=== PATIENT | female | born 1940 | race Caucasian/White ===

== ENCOUNTER 2019-09-22 21:37 | Inpatient (IN) | payer BC, MEDICARE ==
[~2019-09-22] VITALS: Ht 162.6 cm; Wt 120.2 kg
--- NOTE | 2019-09-22 21:45 | NUR ---
PT BIB RA WITH A C/O MORE TIRED THAN USUAL. PT IS AA&O X 2-3. PT KNOWS PERSON, PLACE, AND THE PRESIDENT. PT DOES NOT KNOW THE YEAR. PT WAS 92% ON RA. PT WAS PLACED ON 2L O2 VIA NC. PT IS SATURATING AT 96%. PT'S DAUGHTER IS AT THE BEDSIDE AND IS SPEAKING TO TRIAGE. PT HAS BLE EDEMA WITH LYMPHEDEMA NOTED BILATERALLY. PT IS AFEBRILE.
[2019-09-22 22:39] LABS: BASOPHILS % (AUTO) 0.4 % (0.0-2.0); EOSINOPHILS % (AUTO) 1.5 % (0.0-6.0); HEMATOCRIT 44 % (33-45); HEMOGLOBIN 14.6 g/dL (11.5-14.8); LYMPHOCYTES # (AUTO) 0.6 /CMM (0.8-4.8); LYMPHOCYTES % (AUTO) 5.1 % (20.0-44.0); MEAN CORPUSCULAR HGB CONC 33 g/dl (31.0-36.0); MEAN CORPUSCULAR VOLUME 90 fL (82-100); MONOCYTES # (AUTO) 0.7 /CMM (0.1-1.30); MONOCYTES % (AUTO) 6.2 % (2.0-12.0); NEUTROPHILS # (AUTO) 9.7 /CMM (1.8-8.9); NEUTROPHILS % (AUTO) 86.8 % (43.0-81.0); PLATELET COUNT (AUTO) 216 /CMM (150-450); RED BLOOD CELL COUNT(AUTO) 4.87 MIL/uL (4.0-5.2); WHITE BLOOD COUNT (AUTO) 11.2 K/uL (4.3-11.0)
--- NOTE | 2019-09-22 22:40 | NUR ---
INFLUENZA SWAB DONE. IN AND OUT CATH DONE. APPROX 200 ML CLOUDY, YELLOW URINE OUTPUT NOTED.
--- NOTE | 2019-09-22 22:40 | NUR ---
PT USES A WALKER TO AMBULATE
--- NOTE | 2019-09-22 22:50 | NUR ---
PT LEFT FOR CT VIA RNEY
[2019-09-22 22:53] LABS: CALCIUM, SERUM 9.8 mg/dL (8.5-10.1); CARBON DIOXIDE 32 mmol/L (21-32); CHLORIDE 95 mmol/L (98-107); CREATININE 1.5 mg/dL (0.6-1.3); GLUCOSE 194 mg/dL (74-106); POTASSIUM 3.9 mmol/L (3.5-5.1); SODIUM SERUM 134 mmol/L (136-145); UREA NITROGEN, BLOOD 30 mg/dL (7-18)
[2019-09-22 22:56] LABS: APPEARANCE,URINE Cloudy (CLEAR); BILIRUBIN,URINE Negative (NEGATIVE); BLOOD, URINE Moderate Ery/uL (NEGATIVE); COLOR,URINE Yellow (YELLOW); KETONES,URINE Negative (NEGATIVE); LEUKOCYTE ESTERASE ,URINE Moderate (NEGATIVE); NITRITE, URINE Positive (NEGATIVE); PROTEIN,URINE 30 mg/dl (NEGATIVE); UGLUCOSE Negative (NEGATIVE); UROBILINOGEN,URINE 0.2 EU/dL (0.2)
[2019-09-22 23:10] LABS: BACTERIA,URINE 3+ /HPF (None Seen); RBC,URINE 21-50 /HPF (0-2); SQUAMOUS EPITHELIAL CELL,UR Few /HPF (None Seen); WBC,URINE 81-100 /HPF (0-3)
--- NOTE | 2019-09-22 23:10 | NUR ---
PT RETURNED FROM CT. PT WAS PLACED BACK ON THE MONITOR AND CONTINUOUS PULSE OX.
[2019-09-22 23:21] LABS: ALANINE AMINOTRANSFERASE 20 U/L (12-78); ALBUMIN 3.3 g/dL (3.4-5.0); ALKALINE PHOSPHATASE 70 U/L (46-116); ASPARTATE AMINOTRANSFERASE 21 U/L (15-37); B-TYPE NATRIURETIC PEPTIDE 10914 PG/ML (0-125); BILIRUBIN,DIRECT 0.3 mg/dL (0.0-0.2); TOTAL PROTEIN, SERUM 7.9 g/dL (6.4-8.2)
[2019-09-22] MEDS ORDERED: ASPIRIN 325 MG TABLET PO ONE (23:30)
[2019-09-22] MEDS ORDERED: CEFTRIAXONE 1GM BAG (ER ONLY) 1 GM/50 ML PIGGYBACK IV ONE (23:30)
--- NOTE | 2019-09-22 23:32 | NUR ---
DR EDWARDS IS AT THE BEDSIDE.
[2019-09-22] MEDS ORDERED: CEFTRIAXONE 1GM BAG (ER ONLY) 50 ML IV ONE (23:43)
[2019-09-22] MEDS ORDERED: ASPIRIN 325 MG TABLET ONE (23:44)
--- NOTE | 2019-09-22 23:48 | NUR ---
PER DR EDWARDS, CANCEL ASPIRIN ORDER.
[2019-09-22] MEDS ORDERED: hydrALAZINE HCL IV 20 MG VIAL ONE (23:49)
--- NOTE | 2019-09-22 23:49 | NUR ---
PT'S BLOOD PRESSURE IS STILL ELEVATED 181/117. DR EDWARDS IS AWARE AND NEW ORDERS WERE GIVEN.
--- NOTE | 2019-09-22 23:53 | NUR ---
verbal order from dr. ly; hydralazine 10mg ivp
[2019-09-23] MEDS ORDERED: CEFTRIAXONE 1GM BAG (ER ONLY) 50 ML IV ONE ×2 (00:09→00:21)
[2019-09-23] MEDS ORDERED: ONDANSETRON HCL/PF 4 MG/2 ML VIAL IVP PRN (00:30)
[2019-09-23] MEDS ORDERED: MORPHINE SULFATE INJ 2 MG/ML DISP.SYRIN IV PRN (00:30)
[2019-09-23] MEDS ORDERED: Z GUARD REMEDY 2 OZ OINT TP PRN (00:30)
--- NOTE | 2019-09-23 00:41 | NUR ---
BED ASSIGNMENT 306-1
--- NOTE | 2019-09-23 00:50 | NUR ---
DR. EDWARDS ON THE PHONE WITH DR. ANTONIO FROM [facility]
[2019-09-23] MEDS ORDERED: ENALAPRILAT DIHYD. (2.5MG/ML) 1.25 MG/ML VIAL IV PRN (01:00)
[2019-09-23] MEDS ORDERED: hydrALAZINE HCL IV 20 MG VIAL IV ONE (01:00)
[2019-09-23] MEDS ORDERED: WARF4TAB72 PO (01:17)
[2019-09-23] MEDS ORDERED: SPIR25TA6 PO (01:17)
[2019-09-23] MEDS ORDERED: METO25TA4 PO (01:17)
[2019-09-23] MEDS ORDERED: HYDR25TA4 PO (01:17)
[2019-09-23] MEDS ORDERED: FURO40TA5 PO (01:17)
[2019-09-23] MEDS ORDERED: CAND32TA20 PO (01:17)
--- NOTE | 2019-09-23 01:54 | NUR ---
PT APPEARS TO BE RESTING COMFORTABLY WITH NO S/S OF PAIN OR DISTRESS.
--- NOTE | 2019-09-23 02:15 | NUR ---
HEAT TREATING FURNACE TENDER ADMITTING NOTES PATIENT ARRIVED ON UNIT VIA GURNEY; ACCOMPANIED BY ER STAFF AND DAUGHTER; PATIENT ON 2L NC; BREATHING EVEN; PATIENT HAS SLIGHT SOB; BUT TOLERATING 2L NC WELL; PATIENT IS A/O X2; PATIENT FATIGUED AND UNABLE TO PROVIDE MEDICAL HX D/T CONDITION; DAUGHTER PROVIDED MEDICAL HX; R AC #20 INTACT AND PATENT; NO S/S OF REDNESS OR INFILTRATION; FLUSHING WELL; SKIN ASSESSMENT DONE; LOAN MULTIPLE BRUISES NOTED; R UPPER THIGH RASH NOTED; BILATERAL LOWER LEG EDEMA AND DRY SCALY SKIN NOTED; BILATERAL FEET SCALY AND DRY WELL; GENERALIZED EDEMA NOTED; PICTURES TAKEN AND FILED IN PATIENT BINDER; TELE MONITOR ATTACHED; TELE MONITOR READS AFIB, HR 103; PATIENT HAS HX OF AFIB; DAUGHTER STATED PATIENT HR USUALLY 90S - 104S. WILL CONTINUE TO MONITOR; BED LOCKED IN LOW POSITION; SAFETY PRECAUTIONS IN PLACE; BILATERAL SIDE RAILS X2; CALL LIGHT WITHIN REACH; WILL CONTINUE TO MONITOR;
[2019-09-23 02:30] VITALS: BP 148/94
[2019-09-23 04:00] VITALS: BP 122/67
[2019-09-23 04:03] VITALS: BP 148/94
--- NOTE | 2019-09-23 06:13 | NUR ---
PURCHASER AUTOMOTIVE PARTS NOTES FLIGHT PURSER AT BEDSIDE FOR CXR
--- NOTE | 2019-09-23 06:19 | NUR ---
TELEPHONE ASSEMBLER CLOSING NOTES PATIENT SLEEPING COMFORTABLY IN BED; BREATHING EVEN AND UNLABORED; NO S/S OF ACUTE RESPIRATORY DISTRESS NOTED; PATIENT ON 2L NC, TOLERATING WELL; TELE MONITOR READS AFIB HR 93BPM; R AC #18 SL; INTACT AND PATENT; NO S/S OF REDNESS OR INFILTRATION; SAFETY PRECAUTIONS IN PLACE; BED LOCKED IN LOW POSITION; PATIENT IN HIGH FOWLERS TO ASSIST WITH BREATHING; BILATERAL UPPER SIDE RAILS X2; CALL LIGHT WITHIN REACH; CXR COMPLETED; AWAITING RESULTS; WILL ENDORSE CONTINUITY OF CARE TO ONCOMING NURSE.
[2019-09-23 08:00] VITALS: BP 133/80
--- NOTE | 2019-09-23 08:00 | NUR ---
TRACK REPAIRER NOTES PATIENT IN BED RESTING DAUGHTER AT BEDSIDE. PATIENT ALERT, ORIENTED X3. DENIES ANY PAIN. DAUGHTER AT BEDSIDE. PERIPHERAL IV INTACT PATENT. BED IN LOW LOCKED POSITION. CALL LIGHT WITHIN REACH. WILL CONTINUE TO MONITOR.
[2019-09-23] MEDS: METOPROLOL SUCCINATE 25 MG TAB.SR.24H PO SCH (08:58)
[2019-09-23] MEDS: PANTOPRAZOLE 40 MG TABLET.DR PO SCH (08:58)
[2019-09-23] MEDS: DOCUSATE SODIUM 100 MG CAPSULE PO SCH ×2 (08:58→17:56)
[2019-09-23] MEDS ORDERED: LOSARTAN POTASSIUM 50 MG TABLET PO SCH (09:00)
[2019-09-23] MEDS ORDERED: FUROSEMIDE 20 MG/2 ML VIAL IV SCH (09:00)
[2019-09-23] MEDS ORDERED: CANDESARTAN CILEXETIL 16 MG PO SCH (09:00)
--- NOTE | 2019-09-23 09:46 | NUR ---
WOUND CARE CONSULT: PT PRESENTS WITH DRY SCALY SKIN TO LOWER LEGS, PRESENT ON ADMISSION. PT IS INCONTINENT. RECOMMENDATIONS MADE FOR SKIN PROTECTION AND SKIN CARE. DISCUSSED WITH NURSING STAFF. PT ON BANNERFLEX LOW AIRLOSS BED. WILL SEE PRN. WIN IN AGREEMENT WITH PLAN OF CARE. CURRENT ANANTH SCORE IS 14. Addendum: 09/23/19 at 0948 by ILIANA POWER WNDNU Amended: Links added.
[2019-09-23] MEDS: MINERAL OIL/PETROLATUM,WHITE 120 GM JAR TP SCH (13:03)
[2019-09-23 16:00] VITALS: BP 128/67
[2019-09-23] MEDS ORDERED: WARFARIN SODIUM 2 MG TABLET PO SCH (17:00)
[2019-09-23] MEDS: WARFARIN SODIUM 5 MG TABLET PO SCH (17:57)
[2019-09-23] MEDS: ACETAMINOPHEN 325 MG TABLET PO PRN (18:41)
--- NOTE | 2019-09-23 18:44 | NUR ---
SPINNERET CLEANER NOTES PATIENT IN BED RESTING NO SOB OR ACUTE DISTRESS NOTED. PATIENT ALERT, ORIENTED X4. FAMILY AT BEDSIDE. NO ACUTE CHANGES NOTED DURING SHIFT. ALL DUE MEDICATIONS ADMINISTERED. ALL NEEDS MET. PATIENT WAS SEEN BY PT. WILL ENDORSE PAULETTE TO PM SHIFT.
--- NOTE | 2019-09-23 19:51 | NUR ---
RN NOTES PM SHIFT PATIENT ALERT AND ORIENTED X3, 2LPM VIA NC, NO COMPLAIN OF PAIN, AFIB ON THE TELE, NOTED BLE DRY SKIN, INCONTINENT OF URINE, KEPT SAFE, DAUGHTER AT THE BEDSIDE.
[2019-09-23 20:00] VITALS: BP 95/53
[2019-09-23] MEDS: CEFTRIAXONE 1 G in IV D5W 50 ML IV SCH (21:03)
[2019-09-24] VITALS: BP 92/57
[2019-09-24] MEDS: ACETAMINOPHEN 325 MG TABLET PO PRN ×3 (03:25→20:35)
[2019-09-24 04:00] VITALS: BP 107/66
--- NOTE | 2019-09-24 04:09 | NUR ---
RN NOTES PRELIMINARY RESULT OF BLOOD CULTURE GRAM (-) RODS, SAME ORGANISM FOUND IN URINE CULTURE, PENDING C&S, CURRENTLY ON ROCEPHIN 1GM IVPB Q24 HRS
--- NOTE | 2019-09-24 06:24 | NUR ---
RN NOTES PM SHIFT PATIENT ALERT AND AWAKE, ON 3LPM VIA NC, STABLE SPO2, NO COMPLAIN OF PAIN, GIVEN TYLENOL 650 MG FOR MILD PAIN, SLEPT FOR 5 HOURS, ROCEPHIN 1 GRAM IVPB GIVEN, PROVIDED GOOD PERINEAL CARE, MONITOR BLOOD CULTURES, PENDING C&S.
[2019-09-24 07:03] LABS: BASOPHILS # (AUTO) 0.1 /CMM (0.0-0.2); BASOPHILS % (AUTO) 0.7 % (0.0-2.0); EOSINOPHILS % (AUTO) 3.1 % (0.0-6.0); HEMATOCRIT 39 % (33-45); LYMPHOCYTES # (AUTO) 0.6 /CMM (0.8-4.8); LYMPHOCYTES % (AUTO) 6.6 % (20.0-44.0); MEAN CORPUSCULAR HGB CONC 33 g/dl (31.0-36.0); MEAN CORPUSCULAR VOLUME 90 fL (82-100); MONOCYTES % (AUTO) 11.7 % (2.0-12.0); NEUTROPHILS # (AUTO) 6.6 /CMM (1.8-8.9); NEUTROPHILS % (AUTO) 77.9 % (43.0-81.0); PLATELET COUNT (AUTO) 171 /CMM (150-450); RED BLOOD CELL COUNT(AUTO) 4.36 MIL/uL (4.0-5.2); WHITE BLOOD COUNT (AUTO) 8.5 K/uL (4.3-11.0)
--- NOTE | 2019-09-24 07:30 | NUR ---
MS/RN OPENING NOTE Patient is resting in bed, A/Ox 3, showing no signs of acute distress or SOB, saturating 100% on 2L NC, per MD, DC O2 if patient can be 92% on RA. IV line is clean and intact s/l. Bed is in lowest position, side rails x3 in upright position, call light is within reach and patient is aware of how to call for assistance will continue with plan of care.
[2019-09-24 07:32] LABS: ALANINE AMINOTRANSFERASE 35 U/L (12-78); ALBUMIN 2.4 g/dL (3.4-5.0); ALKALINE PHOSPHATASE 83 U/L (46-116); ASPARTATE AMINOTRANSFERASE 42 U/L (15-37); BILIRUBIN,TOTAL 0.6 mg/dL (0.2-1.0); CALCIUM, SERUM 8.4 mg/dL (8.5-10.1); CARBON DIOXIDE 31 mmol/L (21-32); CHLORIDE 97 mmol/L (98-107); CHOLESTEROL 100 mg/dL (<200); CREATININE 2.5 mg/dL (0.6-1.3); GLUCOSE 103 mg/dL (74-106); HDL CHOLESTEROL 29 mg/dL (40-60); LDL 55 mg/dL (0-99); MAGNESIUM 1.5 mg/dL (1.8-2.4); PHOSPHORUS 4.5 mg/dL (2.5-4.9); POTASSIUM 3.8 mmol/L (3.5-5.1); SODIUM SERUM 136 mmol/L (136-145); THYROID STIMULATING HORMONE 1.041 uIU/mL (0.358-3.74); TOTAL PROTEIN, SERUM 6.4 g/dL (6.4-8.2); TRIGLYCERIDES 87 mg/dL (30-150); UREA NITROGEN, BLOOD 53 mg/dL (7-18)
[2019-09-24 08:00] VITALS: BP_SYST 112; BP_SYST 159; BP_DIAS 67; BP_DIAS 80
[2019-09-24] MEDS: DOCUSATE SODIUM 100 MG CAPSULE PO SCH ×2 (09:00→17:15)
--- NOTE | 2019-09-24 09:00 | NUR ---
MS/RN NOTE Patient is 87% O2 sat on RA, no signs of acute distress or SOB. Titrated O2 down to 2L NC. WIll continue to monitor.
[2019-09-24] MEDS: METOPROLOL SUCCINATE 25 MG TAB.SR.24H PO SCH (09:27)
[2019-09-24] MEDS: MINERAL OIL/PETROLATUM,WHITE 120 GM JAR TP SCH (09:27)
[2019-09-24] MEDS: PANTOPRAZOLE 40 MG TABLET.DR PO SCH (09:27)
[2019-09-24] MEDS ORDERED: Magnesium 1GM/D5W 100ML PREMIX 100 ML IV SCH ×2 (09:58→10:00)
[2019-09-24 16:00] VITALS: BP 112/45
[2019-09-24] MEDS: WARFARIN SODIUM 5 MG TABLET PO SCH (17:17)
--- NOTE | 2019-09-24 18:57 | NUR ---
MS/RN CLOSING NOTE Patient is resting in bed, A/Ox 3, showing no signs of acute distress or SOB, saturating 100% on 2L NC, per MD, on RA O2 sat is 87%, patient placed back on 2L NC. IV line is clean and intact s/l. All patient needs met, all due meds given. Bed is in lowest position, side rails x3 in upright position, call light is within reach and patient is aware of how to call for assistance will continue with plan of care. Safety, fall and aspiration precautions enforced, family at the bedside. Will continue with plan of care.
--- NOTE | 2019-09-24 19:30 | NUR ---
RN NOTES RECEIVED PT. AWAKE ON BD, A/OX3, FAMILY AT BEDSIDE, DENIES PAIN AT THIS TIME, NO SOB, CALL LIGHT WITHIN REACH, [id number], CONTINUE TO MONITOR
[2019-09-24 20:00] VITALS: BP 102/54
--- NOTE | 2019-09-24 20:37 | NUR ---
RN NOTES complained of headache-tylenol 650mg po given as ordered
[2019-09-24] MEDS: CEFTRIAXONE 1 G in IV D5W 50 ML IV SCH (21:38)
[2019-09-25] MEDS: ACETAMINOPHEN 325 MG TABLET PO PRN ×3 (05:33→18:03)
--- NOTE | 2019-09-25 05:38 | NUR ---
RN NOTES PT. ASKED FOR TYLENOL FOR MILD PAIN- TYLENOL 650MG PO GIVEN ORDERED, V/S STABLE
--- NOTE | 2019-09-25 06:18 | NUR ---
RN NOTES AWAKE MORNING CARE RENDERED, DENIES PAIN, NO SOB, CALL LIGHT WITHIN REACH, SIDERAILSUPX2, PT NEEDS ATTENDED
[2019-09-25 07:00] LABS: BASOPHILS # (AUTO) 0.1 /CMM (0.0-0.2); BASOPHILS % (AUTO) 0.8 % (0.0-2.0); EOSINOPHILS % (AUTO) 6.1 % (0.0-6.0); HEMATOCRIT 40 % (33-45); HEMOGLOBIN 13.3 g/dL (11.5-14.8); LYMPHOCYTES # (AUTO) 0.8 /CMM (0.8-4.8); LYMPHOCYTES % (AUTO) 11.1 % (20.0-44.0); MEAN CORPUSCULAR HGB CONC 34 g/dl (31.0-36.0); MEAN CORPUSCULAR VOLUME 90 fL (82-100); MONOCYTES % (AUTO) 13.3 % (2.0-12.0); NEUTROPHILS # (AUTO) 5.1 /CMM (1.8-8.9); NEUTROPHILS % (AUTO) 68.7 % (43.0-81.0); PLATELET COUNT (AUTO) 216 /CMM (150-450); RED BLOOD CELL COUNT(AUTO) 4.42 MIL/uL (4.0-5.2); WHITE BLOOD COUNT (AUTO) 7.4 K/uL (4.3-11.0)
--- NOTE | 2019-09-25 07:00 | NUR ---
MS/RN Opening Note Received patient in bed sleeping comfortably, AO x 3 able to responds all stimuli. Skin is warm to touch, clean/dry, intact IV site. Respiratory even and unlabored in room air, no s/s of respiratory distress observed. Keep remain lower position of bed with elevated HOB. Call light within reach, will continue to monitor.
[2019-09-25] MEDS: PANTOPRAZOLE 40 MG TABLET.DR PO SCH (07:44)
[2019-09-25 07:47] LABS: ALANINE AMINOTRANSFERASE 38 U/L (12-78); ALBUMIN 2.6 g/dL (3.4-5.0); ALKALINE PHOSPHATASE 95 U/L (46-116); ASPARTATE AMINOTRANSFERASE 46 U/L (15-37); BILIRUBIN,TOTAL 0.4 mg/dL (0.2-1.0); CALCIUM, SERUM 8.4 mg/dL (8.5-10.1); CARBON DIOXIDE 33 mmol/L (21-32); CHLORIDE 93 mmol/L (98-107); CREATININE 2.4 mg/dL (0.6-1.3); GLUCOSE 134 mg/dL (74-106); MAGNESIUM 1.9 mg/dL (1.8-2.4); PHOSPHORUS 3.6 mg/dL (2.5-4.9); POTASSIUM 3.6 mmol/L (3.5-5.1); SODIUM SERUM 132 mmol/L (136-145); TOTAL PROTEIN, SERUM 6.8 g/dL (6.4-8.2); UREA NITROGEN, BLOOD 67 mg/dL (7-18)
[2019-09-25 08:00] VITALS: BP 106/67
[2019-09-25] MEDS: DOCUSATE SODIUM 100 MG CAPSULE PO SCH ×2 (08:23→16:48)
[2019-09-25] MEDS: MINERAL OIL/PETROLATUM,WHITE 120 GM JAR TP SCH (08:24)
[2019-09-25] MEDS: METOPROLOL SUCCINATE 25 MG TAB.SR.24H PO SCH (08:24)
--- NOTE | 2019-09-25 15:00 | NUR ---
Pt c/o edema on bilateral legs and requesting resume diuretic medications, ask Dr. Price but denies resume meds due to high risk kidney injury. Explained patient and daughter regarding above, and they verbally understanding.
[2019-09-25 16:16] VITALS: BP 90/53
[2019-09-25] MEDS: WARFARIN SODIUM 5 MG TABLET PO SCH (16:49)
--- NOTE | 2019-09-25 18:30 | NUR ---
MS/RN Closing Note Patient in bed comfortably, daughter requested Tylenol for legs muscle spasm for patient. Respiratory even and unlobored, no SOB or resp. distress observed. Skin is warm to touch, keep clean/dry, bed bath provided and skin care provided. Keep remains lower bed of position with elevated HOB. Call light within reach, will endorse to aluminum welder.
--- NOTE | 2019-09-25 19:38 | NUR ---
MS RN OPENING NOTES PATIENT RECEIVED RESTING IN BED WITH DAUGHTER AT BEDSIDE, A/O X 3. ON 2L OF O2 VIA NC BREATHING EVEN AND UNLABORED, NO SOB NOTED. NO SIGNS OF ACUTE DISTRESS. NO COMPLAINTS OF PAIN OR DISCOMFORT. IV LOCATED ON R HAND #22 HL. SAFETY PRECAUTIONS IN PLACE WITH BED LOCKED, SIDE RAILS UP X 2, CALL LIGHT WITHIN REACH, AND IN LOWEST POSITION. WILL CONTINUE TO MONITOR.
[2019-09-25 20:00] VITALS: BP 118/62
[2019-09-25] MEDS: CEFTRIAXONE 1 G in IV D5W 50 ML IV SCH (21:28)
--- NOTE | 2019-09-26 06:58 | NUR ---
MS RN CLOSING NOTES PATIENT CURRENTLY RESTING IN BED A/O X3. ON 2L OF O2 VIA NC BREATHING EVEN AND UNLABORED, NO SOB NOTED. NO SIGNS OF ACUTE DISTRESS. NO COMPLAINTS OR PAIN OR DISCOMFORT. IV LOCATED ON R HAND #22. PATIENT WAS KEPT CLEAN AND DRY THROUGHOUT THE NIGHT- ALL NEEDS ATTENDED TO. SAFETY PRECAUTION IN PLACE WITH BED IN LOWEST POSITION, CALL LIGHT WITHIN REACH, BREAKS ON, AND SIDE RAILS UP X 2. WILL ENDORSE TO ONCOMING SHIFT ABOUT PAULETTE.
--- NOTE | 2019-09-26 07:40 | NUR ---
MS/RN NOTE THE PATIENT IS RECEIVED IN BED. ALERT AND ORIENTED X3. RECEIVING OXYGEN AT 2L/MIN VIA NASAL CANNULA AND THE PATIENT DENIES SOB. RESPIRATION REGULAR AND UNLABORED. DENIES PAIN. RIGHT HAND G 22 PATENT AND SALINE LOCKED. BED LOW AND LOCKED. SIDE RAILS UP X3. CALL LIGHT WITHIN REACH. WILL CONTINUE TO MONITOR.
[2019-09-26 08:00] VITALS: BP 157/81
[2019-09-26] MEDS: DOCUSATE SODIUM 100 MG CAPSULE PO SCH ×2 (08:22→16:56)
[2019-09-26] MEDS: PANTOPRAZOLE 40 MG TABLET.DR PO SCH (08:23)
[2019-09-26] MEDS: METOPROLOL SUCCINATE 25 MG TAB.SR.24H PO SCH (08:23)
[2019-09-26] MEDS ORDERED: GUAIFENESIN/CODEINE 10 ML UDC PO PRN (08:30)
--- NOTE | 2019-09-26 08:40 | NUR ---
MS/RN NOTE THE ESTRELLA IS MADE THAT THE PATIENT COMPLAINS OF NON-PRODUCTIVE COUGH. NEW ORDER FOR ROBITUSSIN AC 10 ML Q6HR PRN IS OBTAINED. THE ORDER IS READ BACK, VERIFIED. NOTED AND CARRIED OUT.
--- NOTE | 2019-09-26 09:00 | NUR ---
MS/RN NOTE ASSESSED AND NOTED PATIENT`S OXYGEN SATURATION IN ROOM AIR IS AT 91%. PLACED THE PATIENT ON OXYGEN 2L/MIN VIA NASAL CANNULA AND SATURATION IMPROVED TO 97%.
[2019-09-26 09:08] VITALS: BP 157/81
[2019-09-26 09:10] VITALS: BP 134/85
[2019-09-26 09:48] LABS: BASOPHILS # (AUTO) 0.2 /CMM (0.0-0.2); BASOPHILS % (AUTO) 2.9 % (0.0-2.0); EOSINOPHILS % (AUTO) 5.6 % (0.0-6.0); HEMATOCRIT 43 % (33-45); HEMOGLOBIN 13.9 g/dL (11.5-14.8); LYMPHOCYTES # (AUTO) 0.9 /CMM (0.8-4.8); LYMPHOCYTES % (AUTO) 14.1 % (20.0-44.0); MEAN CORPUSCULAR HGB CONC 32 g/dl (31.0-36.0); MEAN CORPUSCULAR VOLUME 90 fL (82-100); MONOCYTES # (AUTO) 0.8 /CMM (0.1-1.30); MONOCYTES % (AUTO) 13.6 % (2.0-12.0); NEUTROPHILS # (AUTO) 3.9 /CMM (1.8-8.9); NEUTROPHILS % (AUTO) 63.8 % (43.0-81.0); PLATELET COUNT (AUTO) 234 /CMM (150-450); RED BLOOD CELL COUNT(AUTO) 4.77 MIL/uL (4.0-5.2); WHITE BLOOD COUNT (AUTO) 6.2 K/uL (4.3-11.0)
[2019-09-26 09:53] LABS: CARBON DIOXIDE 31 mmol/L (21-32); CHLORIDE 95 mmol/L (98-107); CREATININE 1.5 mg/dL (0.6-1.3); GLUCOSE 154 mg/dL (74-106); MAGNESIUM 2.2 mg/dL (1.8-2.4); PHOSPHORUS 2.6 mg/dL (2.5-4.9); POTASSIUM 4.2 mmol/L (3.5-5.1); SODIUM SERUM 133 mmol/L (136-145); UREA NITROGEN, BLOOD 59 mg/dL (7-18)
[2019-09-26] MEDS: MINERAL OIL/PETROLATUM,WHITE 120 GM JAR TP SCH (09:57)
[2019-09-26] MEDS: ACETAMINOPHEN 325 MG TABLET PO PRN ×2 (11:09→17:44)
[2019-09-26 15:58] VITALS: BP 130/73
[2019-09-26] MEDS: WARFARIN SODIUM 5 MG TABLET PO SCH (16:55)
--- NOTE | 2019-09-26 17:44 | NUR ---
MS/RN NOTE THE PATIENT COMPLAINED OF PAIN 2/10 AT LOAN MIDLINE SITE. SKIN INTACT. NO SWELLING NOTED. IV NOT INFILTRATED, IV IS SALINE LOCKED. TYLENOL 325 MG 2 TABS PO IS GIVEN AND COLD COMPRESS IS OBTAINED. WILL CONTINUE TO MONITOR.
--- NOTE | 2019-09-26 18:20 | NUR ---
MS/RN NOTE THE PATIENT VERBALIZED RELIEF FROM PAIN AT LOAN MIDLINE SITE.
--- NOTE | 2019-09-26 18:33 | NUR ---
MS/RN NOTE THE PATIENT IS ALERT AND ORIENTED X3. RECEIVING OXYGEN AT 2L/MIN VIA NASAL CANNULA AND SATURATION IS AT 97%. DENIES SOB. RESPIRATION REGULAR AND UNLABORED. DENIES PAIN. THE PATIENT IN NO APPARENT DISTRESS AT THIS TIME. RIGHT HAND G 22 PATENT AND SALINE LOCKED. LOAN MIDLINE G 18 PATENT AND SALINE LOCKED. BED LOW AND LOCKED. SIDE RAILS UP X3. CALL LIGHT WITHIN REACH. WILL ENDORSE TO HELPER METAL HANGING.
--- NOTE | 2019-09-26 19:46 | NUR ---
MS RN OPENING NOTES PATIENT RECEIVED RESTING IN BED WITH DAUGHTER AT BEDSIDE, A/O X 3. ON 2L OF O2 VIA NC BREATHING EVEN AND UNLABORED, NO SOB NOTED. NO SIGNS OF ACUTE DISTRESS. NO COMPLAINTS OF PAIN OR DISCOMFORT. IV LOCATED ON R HAND #22 HL, MIDLINE LOCATED ON LOAN #18. SAFETY PRECAUTIONS IN PLACE WITH BED LOCKED, SIDE RAILS UP X 2, CALL LIGHT WITHIN REACH, AND IN LOWEST POSITION. WILL CONTINUE TO MONITOR.
[2019-09-26 20:00] VITALS: BP 111/68
[2019-09-26] MEDS: CEFTRIAXONE 1 G in IV D5W 50 ML IV SCH (21:06)
[2019-09-27 06:27] LABS: CALCIUM, SERUM 9.8 mg/dL (8.5-10.1); CREATININE 1.1 mg/dL (0.6-1.3); MAGNESIUM 2.4 mg/dL (1.8-2.4); PHOSPHORUS 2.5 mg/dL (2.5-4.9); POTASSIUM 4.4 mmol/L (3.5-5.1)
[2019-09-27 06:31] LABS: BASOPHILS # (AUTO) 0.1 /CMM (0.0-0.2); BASOPHILS % (AUTO) 1.1 % (0.0-2.0); EOSINOPHILS % (AUTO) 4.7 % (0.0-6.0); HEMATOCRIT 43 % (33-45); HEMOGLOBIN 14.1 g/dL (11.5-14.8); LYMPHOCYTES % (AUTO) 15.3 % (20.0-44.0); MEAN CORPUSCULAR HGB CONC 33 g/dl (31.0-36.0); MEAN CORPUSCULAR VOLUME 90 fL (82-100); MONOCYTES # (AUTO) 0.8 /CMM (0.1-1.30); MONOCYTES % (AUTO) 12.1 % (2.0-12.0); NEUTROPHILS # (AUTO) 4.3 /CMM (1.8-8.9); NEUTROPHILS % (AUTO) 66.8 % (43.0-81.0); PLATELET COUNT (AUTO) 266 /CMM (150-450); RED BLOOD CELL COUNT(AUTO) 4.78 MIL/uL (4.0-5.2); WHITE BLOOD COUNT (AUTO) 6.5 K/uL (4.3-11.0)
--- NOTE | 2019-09-27 06:48 | NUR ---
MS RN CLOSING NOTES PATIENT CURRENTLY RESTING IN BED A/O X3. ON 2L OF O2 VIA NC BREATHING EVEN AND UNLABORED, NO SOB NOTED. NO SIGNS OF ACUTE DISTRESS. NO COMPLAINTS OR PAIN OR DISCOMFORT. IV LOCATED ON R HAND #22 AND LOAN MIDLINE #18 PATENT AND INTACT. PATIENT WAS KEPT CLEAN AND DRY THROUGHOUT THE NIGHT- ALL NEEDS ATTENDED TO. SAFETY PRECAUTION IN PLACE WITH BED IN LOWEST POSITION, CALL LIGHT WITHIN REACH, BREAKS ON, AND SIDE RAILS UP X 2. WILL ENDORSE TO ONCOMING SHIFT ABOUT PAULETTE.
--- NOTE | 2019-09-27 07:25 | NUR ---
MS/RN NOTE THE PATIENT IS RECEIVED IN BED. PATIENT IS ALERT AND ORIENTED X3. DENIES SOB. RECEIVING OXYGEN AT 2L/MIN VIA NASAL CANNULA. RESPIRATION REGULAR AND UNLABORED. DENIES PAIN. RIGHT HAND G 22 PATENT AND SALINE LOCKED. LOAN MIDLINE G 18 PATENT AND SALINE LOCKED. BED LOW AND LOCKED. SIDE RAILS UP X3. CALL LIGHT WITHIN REACH. WILL CONTINUE TO MONITOR.
[2019-09-27 08:00] VITALS: BP 132/77
--- NOTE | 2019-09-27 08:33 | NUR ---
MS/RN NOTE PATIENT IS GIVEN TO NABILA CABAN. REPORT GIVEN TO NABILA CABAN. PATIENT IS IN STABLE CONDITION.
--- NOTE | 2019-09-27 08:40 | NUR ---
RN NOTES RECEIVED PATIENT FROM NABILA RENEE. PATIENT IN STABLE CONDITION. FAMILY AT BEDSIDE. NOT IN ANY FORM OF DISTRESS. NO SOB. DENIED PAIN OR DISCOMFORT AT THIS TIME. IV ACCESS INTACT AND PATENT. KEPT PATIENT SAFE AND COMFORTABLE. BED IN LOW/LOCKED POSITION, SIDERAILS UPX2,HOB ELEVATED. CALL LIGHT IN REACH. WILL MONITOR ACCORDINGLY
[2019-09-27] MEDS: PANTOPRAZOLE 40 MG TABLET.DR PO SCH (09:10)
[2019-09-27] MEDS: METOPROLOL SUCCINATE 25 MG TAB.SR.24H PO SCH (09:11)
[2019-09-27] MEDS: DOCUSATE SODIUM 100 MG CAPSULE PO SCH ×2 (09:11→16:32)
[2019-09-27] MEDS: MINERAL OIL/PETROLATUM,WHITE 120 GM JAR TP SCH (09:17)
--- NOTE | 2019-09-27 10:00 | NUR ---
rn notes offered turning and reposition but patient refused. explained risk and benefits but still insisted to be reposition. per patient "im okay right now."
[2019-09-27] MEDS: ACETAMINOPHEN 325 MG TABLET PO PRN (10:43)
--- NOTE | 2019-09-27 12:30 | NUR ---
RN NOTES OFFERED TURNING AND REPOSITIONING BUT PATIENT REFUSED. EXPLAINED AND REMINDED PATIENT THAT ITS IMPORTANT TO BE TURNED TO AVOID REDNESS AND PRESSURE ULCER BUT STILL REFUSED TO BE REPOSITIONED. PER PATIENT "NO, IM OKAY". FAMILY AT BEDSIDE.
[2019-09-27] MEDS ORDERED: ALBUTEROL FS 2.5 MG/3 ML VIAL.NEB NEB SCH (13:30)
[2019-09-27] MEDS: LEVALBUTEROL HCL NEB 1.25 MG/0.5 ML VIAL.NEB IH SCH ×2 (14:52→23:39)
[2019-09-27] MEDS ORDERED: ALBUTEROL HALF STRENGTH 1.25 MG/3 ML VIAL.NEB NEB PRN (15:30)
[2019-09-27 16:00] VITALS: BP_SYST 128; BP_SYST 132; BP_DIAS 71; BP_DIAS 77
--- NOTE | 2019-09-27 16:23 | NUR ---
MS/RN NOTE COUMADIN DAILY ORDER CK INR IS NOT SCANNED DUE TO NO BARCODE TO SCAN, BUT INR IS CHECK PRIOR COUMADIN ADMINISTRATION.
[2019-09-27] MEDS: WARFARIN SODIUM 5 MG TABLET PO SCH (16:31)
--- NOTE | 2019-09-27 17:20 | NUR ---
RT NOTE Pt refused abg @ this time. No respiratory distress noted.
--- NOTE | 2019-09-27 19:10 | NUR ---
RN CLOSING NOTES PATIENT IN STABLE CONDITION. ALL NEEDS ATTENDED AND PROVIDED. ALL DUE MEDICATIONS GIVEN ORDERED. ASSISTED PATIENT WITH ADLS. KEPT PATIENT SAFE AND COMFORTABLE. BED IN LOW/LOCKED POSITION, SIDERAILS UPX2, CALL LIGHT IN REACH. ENDORSED ACCORDINGLY.
--- NOTE | 2019-09-27 19:30 | NUR ---
MS RN NOTES RECEIVED ON BED A/O X3,BREATHING EASY,NOT IN ANY FORM OF RESPIRATORY DISTRESS.WITH RIGHT UPPER ARM MIDLINE FOR MEDS.CALL LIGHT IN REACH,NEEDS ANTICIPATED.
[2019-09-27 20:00] VITALS: BP 157/75
[2019-09-27 20:36] VITALS: BP 157/75
[2019-09-27] MEDS: CEFTRIAXONE 1 G in IV D5W 50 ML IV SCH (21:41)
--- NOTE | 2019-09-27 22:00 | NUR ---
MS RN NOTES DUE JESSICA GARCIAS
--- NOTE | 2019-09-28 01:00 | NUR ---
MS RN NOTES SLEEPING,KEPT WARM AND COMFORTABLE.
--- NOTE | 2019-09-28 06:17 | NUR ---
MS RN NOTES AWAKE,ON HIGH FOWLERS POSITION,CLAIMED SHE SLEPT GOOD.MORNING CARE RENDERED BY EHRVE MONTENEGRO,TOLERATED WELL.RIGHT UPPER ARM MIDLINE REMAINS PATENT.IN NO ACUTE DISTRESS.
--- NOTE | 2019-09-28 07:30 | NUR ---
ms rn received on bed, awake,alert,oriented x3mnot in any form of distress,respirations even and unlabored,no sob,not in any form of distress,denies pain at this tie,all needs attended.
[2019-09-28] MEDS: LEVALBUTEROL HCL NEB 1.25 MG/0.5 ML VIAL.NEB IH SCH ×3 (07:43→23:22)
[2019-09-28 08:00] VITALS: BP 137/72
--- NOTE | 2019-09-28 09:00 | NUR ---
ms hernandez breakfast served,due meds given,tolerated well.
[2019-09-28] MEDS: DOCUSATE SODIUM 100 MG CAPSULE PO SCH ×2 (09:08→17:38)
[2019-09-28] MEDS: PANTOPRAZOLE 40 MG TABLET.DR PO SCH (09:08)
[2019-09-28] MEDS: METOPROLOL SUCCINATE 25 MG TAB.SR.24H PO SCH (09:09)
--- NOTE | 2019-09-28 09:35 | NUR ---
MS RN NOTES RECEIVED ON BED A/O X3,BREATHING REGULAR,NOT IN ANY FORM OF DISTRESS.O2 NOT IN USED,PATIENT REFUSED TO USE IT THIS TIME.WITH RIGHT UPPER ARM MIDLINE FOR MEDS.BED ON LOWEST POSITION AND LOCKED.CALL LIGHT IN REACH,NEEDS ANTICIPATED.
[2019-09-28] MEDS: ACETAMINOPHEN 325 MG TABLET PO PRN (10:07)
[2019-09-28 10:09] LABS: ABG BASE EXCESS 8.7 mmol/L; ABG OXYGEN SATURATION 91.7 % (92.0-98.5); ABG PCO2 51.9 mmHg (35.0-45.0); ABG PO2 56.1 mmHg (75.0-100.0); AaDO2 31.5 mmHg; COHb 0.7 % (0.5-1.5); MetHb 0.4 % (0.0-1.5); O2Hb 90.7 % (94.0-97.0); SITE, ABG Left Brachial; VENT MODE, BG room air
--- NOTE | 2019-09-28 11:00 | NUR ---
ms hernandez was seen by rula warren/ orders made and carried out.
[2019-09-28 16:00] VITALS: BP 153/53
[2019-09-28] MEDS: WARFARIN SODIUM 5 MG TABLET PO SCH (17:38)
[2019-09-28] MEDS: MINERAL OIL/PETROLATUM,WHITE 120 GM JAR TP SCH (17:54)
--- NOTE | 2019-09-28 17:55 | NUR ---
ms rn on bed, no distress noted,all needs attended.
[2019-09-28 20:00] VITALS: BP 142/84
--- NOTE | 2019-09-28 22:00 | NUR ---
MS RN NOTES DUE IV ROCEPHIN HUNG AND INFUSED
[2019-09-28] MEDS: CEFTRIAXONE 1 G in IV D5W 50 ML IV SCH (22:01)
--- NOTE | 2019-09-29 05:30 | NUR ---
MS RN NOTES MORNING CARE RENDERED BY HERVE ARELLANO,TOLERATED WELL.
--- NOTE | 2019-09-29 06:30 | NUR ---
MS RN NOTES NO EPISODE OF SOB,SLEPT WELL.NO DISTRESS.POSSIBLE D/C TODAY.
[2019-09-29] MEDS: PANTOPRAZOLE 40 MG TABLET.DR PO SCH (07:43)
[2019-09-29 08:00] VITALS: BP 111/62
--- NOTE | 2019-09-29 08:00 | NUR ---
MS/RN Opening Note Received patient AO x 3, able to responds all stimuli. Pt does no appears pain or any discomfort. Respiratory even and unlabored with n/c oxygen, skin is warm to touch, clean/dry. keep lower bed position of bed with elevated HOB. Call light within reach, will continue to monitor.
[2019-09-29] MEDS: LEVALBUTEROL HCL NEB 1.25 MG/0.5 ML VIAL.NEB IH SCH ×3 (08:09→23:03)
[2019-09-29] MEDS: METOPROLOL SUCCINATE 25 MG TAB.SR.24H PO SCH (09:06)
[2019-09-29] MEDS: DOCUSATE SODIUM 100 MG CAPSULE PO SCH ×2 (09:06→16:58)
[2019-09-29] MEDS: MINERAL OIL/PETROLATUM,WHITE 120 GM JAR TP SCH (09:08)
[2019-09-29] MEDS: ACETAMINOPHEN 325 MG TABLET PO PRN (12:50)
[2019-09-29 16:00] VITALS: BP 132/66
[2019-09-29] MEDS: WARFARIN SODIUM 5 MG TABLET PO SCH (17:00)
--- NOTE | 2019-09-29 18:30 | NUR ---
MS/RN Closing Note Patient in bed, sleeping comfortable, no c/o pain or discomfort. Skin is warm to touch, clean/dry, intact mid line/IV site. Respiratory even and unlabored, no SOB or distress observed, kept lower position of bed with elevated HOB. Call light within reach, will endorse night nurse.
--- NOTE | 2019-09-29 19:35 | NUR ---
WIRE DROPPER: RECEIVED REPORT FROM SILVER DAHL AT 1925. PT IN BED, ASLEEP, ON RA RESPIRATIONS EVEN AND UNLABORED. APPEARS CALM AND COMFORTABLE, NO FACIAL GRIMACE NOTED. PT HAS LOAN MIDLINE IN PLACED, PATENT AND FLUSHING WELL, ON HL. BLE KEPT OFFLOADED ON PILLOWS. SAFETY PRECAUTIONS FOR FALL INITIATED, CALL LIGHT IN REACH, WILL CONTINUE MONITORING PT.
[2019-09-29 20:00] VITALS: BP 125/77
--- NOTE | 2019-09-29 20:07 | NUR ---
RN NOTES: WENT TO PT'S ROOM, PT AWAKE, PT A/O X3, ON RA, DENIES ANY SOB AT THIS TIME. OFFERED PT TO BE REPOSITION, BUT PT REFUSED. EDUCATION PROVIDED TO PT REGARDING IMPORTANCE OF TURNING AND REPOSITIONING TO PREVENT REDNESS AND OTHER PRESSURE INJURIES. DISCUSSED PLAN OF CARE TO PT, MADE AWARE OF MEDICATIONS FOR TONIGHT. PT REQUESTED TO KEEP HER ROOM DOOR CLOSE.
[2019-09-29] MEDS: CEFTRIAXONE 1 G in IV D5W 50 ML IV SCH (21:04)
--- NOTE | 2019-09-29 22:04 | NUR ---
RN NOTES REFUSAL FOR TURNING AND REPOSITIONING: PT REFUSED TO BE TURN AND REPOSITION STATED SHE'S COMFORTABLE IN HER POSITION. EDUCATION PROVIDED REGARDING RISK FOR DEVELOPMENT OF PRESSURE INJURY.
--- NOTE | 2019-09-30 00:04 | NUR ---
RN NOTES/REFUSAL FOR TURNING AND REPOSITIONING, DIAPER CHANGE: OFFERED DIAPER CHANGE BUT PT REFUSED, OFFERED TO BE REPOSITION, BUT PT REFUSED. EDUCATION PROVIDED TO PT REGARDING IMPORTANCE OF HYGIENE CARE AND REPOSITIONING, PREVENTION OF PRESSURE INJURIES. PT A/O X3. PT REFUSED INTERVENTIONS. MENTAL HEALTH PROGRAM SPECIALIST MADE AWARE.
--- NOTE | 2019-09-30 05:30 | NUR ---
RN NOTES: ASSISTED PARKING ENFORCER IN PROVIDING BED BATH TO PT. UNFORTUNATELY, MIDLINE CAME OFF DURING CLEANING OF PT. PT HAD LARGE BM. ZGUARD APPLIED AND MEPILEX PLACED ON SACROCOCCYX AREA. BLE KEPT OFFLOADED. NOTIFIED JANITOR HELPER REGARDING ACCIDENTAL PULLED OUT OF MIDLINE, PER JANITOR HELPER TO ASK MD HOW LONG THE PT WILL BE ON IV ATB, PT ON IV ROCEPHIN AND TODAY WILL BE THE 7TH DAY, PT TOLERATING PO MEDS, WILL ASK MD/ID, IF MIDLINE STILL NEEDED, THEN PER JANITOR HELPER RECOMMENDATION WILL REINSERT MIDLINE FOR PT.
--- NOTE | 2019-09-30 06:51 | NUR ---
END OF SHIFT REPORT. PT REMAINS REFUSING FOR TURNING AND REPOSITIONING DESPITE PROVIDING EDUCATION. PT HAD LARGE BM TODAY. PT TOLERATED RA, SPO2 RANGING 94-95%. DENIES ANY SOB. BLE KEPT OFFLOADED ON PILLOWS. ROCEPHIN IV ATB ADMINISTERED LAST NIGHT FOR UTI. PT REMAINS AFEBRILE. VS REMAINS STABLE, NEEDS ATTENDED. AWAITING FOR DECISION, PER HOSPITALIST RECOMMENDATION PT OKAY TO GO TO SNF VS ARU VS HOME WITH HH. PT ACCEPTED IN SNF BUT DAUGHTER REFUSING SNF PLACEMENT AND WOULD LIKE [facility], HOWEVER DENIED PER [facility]. FINANCIAL ASSOCIATE ON BOARD TO ASSIST WITH PLACEMENT.SAFETY PRECAUTIONS FOR FALL REMAINS ENGAGED, CALL LIGHT IN REACH, WILL ENDORSE TO DAY RN FOR CONTINUITY OF CARE.
[2019-09-30] MEDS: LEVALBUTEROL HCL NEB 1.25 MG/0.5 ML VIAL.NEB IH SCH ×3 (07:30→23:30)
--- NOTE | 2019-09-30 08:00 | NUR ---
MS RN NOTES PATIENT IN BED RESTING NO SOB OR ACUTE DISTRESS NOTED. PATIENT ALERT, ORIENTED X4. BED IN LOW LOCKED POSITION. CALL LIGHT WITHIN REACH. WILL CONTINUE TO MONITOR.
[2019-09-30] MEDS: METOPROLOL SUCCINATE 25 MG TAB.SR.24H PO SCH (08:01)
[2019-09-30] MEDS: DOCUSATE SODIUM 100 MG CAPSULE PO SCH ×2 (08:01→16:15)
[2019-09-30] MEDS: PANTOPRAZOLE 40 MG TABLET.DR PO SCH (08:01)
[2019-09-30] MEDS: MINERAL OIL/PETROLATUM,WHITE 120 GM JAR TP SCH (08:05)
[2019-09-30 08:33] VITALS: BP 141/94
[2019-09-30 09:23] LABS: BASOPHILS # (AUTO) 0.1 /CMM (0.0-0.2); BASOPHILS % (AUTO) 0.8 % (0.0-2.0); EOSINOPHILS % (AUTO) 3.4 % (0.0-6.0); HEMATOCRIT 41 % (33-45); HEMOGLOBIN 13.2 g/dL (11.5-14.8); LYMPHOCYTES # (AUTO) 1.2 /CMM (0.8-4.8); LYMPHOCYTES % (AUTO) 11.3 % (20.0-44.0); MEAN CORPUSCULAR HGB CONC 32 g/dl (31.0-36.0); MEAN CORPUSCULAR VOLUME 91 fL (82-100); MONOCYTES # (AUTO) 0.8 /CMM (0.1-1.30); MONOCYTES % (AUTO) 7.1 % (2.0-12.0); NEUTROPHILS # (AUTO) 8.4 /CMM (1.8-8.9); NEUTROPHILS % (AUTO) 77.4 % (43.0-81.0); PLATELET COUNT (AUTO) 319 /CMM (150-450); RED BLOOD CELL COUNT(AUTO) 4.49 MIL/uL (4.0-5.2); WHITE BLOOD COUNT (AUTO) 10.8 K/uL (4.3-11.0)
[2019-09-30 09:37] LABS: CALCIUM, SERUM 9.3 mg/dL (8.5-10.1); CARBON DIOXIDE 34 mmol/L (21-32); CHLORIDE 96 mmol/L (98-107); CREATININE 1.1 mg/dL (0.6-1.3); GLUCOSE 261 mg/dL (74-106); POTASSIUM 4.5 mmol/L (3.5-5.1); SODIUM SERUM 134 mmol/L (136-145); UREA NITROGEN, BLOOD 29 mg/dL (7-18)
[2019-09-30 09:42] LABS: ALANINE AMINOTRANSFERASE 22 U/L (12-78); ALBUMIN 2.6 g/dL (3.4-5.0); ALKALINE PHOSPHATASE 77 U/L (46-116); ASPARTATE AMINOTRANSFERASE 17 U/L (15-37); BILIRUBIN,TOTAL 0.6 mg/dL (0.2-1.0); MAGNESIUM 1.7 mg/dL (1.8-2.4); PHOSPHORUS 2.7 mg/dL (2.5-4.9); TOTAL PROTEIN, SERUM 7.4 g/dL (6.4-8.2)
--- NOTE | 2019-09-30 09:51 | NUR ---
WOUND CARE CONSULT: PT SEEN FOR 2ND TIME FOR DRY SKIN ON LOWER LEGS AND FEET, PRESENT ON ADMISSION. RECOMMEND LIBERAL USE OF EUCERIN. DISCUSSED WITH NURSING STAFF AND PT'S DAUGHTER AT BEDSIDE. PT HAS RESOLVING EDEMA TO LOWER LEGS AND LEGS ELEVATED. WILL SEE PRN.
[2019-09-30] MEDS: ACETAMINOPHEN 325 MG TABLET PO PRN ×2 (10:10→18:02)
[2019-09-30] MEDS: VALSARTAN 80 MG TABLET PO SCH (10:10)
[2019-09-30] MEDS: ACETAMINOPHEN 325 MG TABLET PO SCH (12:00)
[2019-09-30 16:04] VITALS: BP 147/90
[2019-09-30] MEDS: CEPHALEXIN MONOHYDRATE 500 MG CAPSULE PO SCH (16:14)
[2019-09-30] MEDS: WARFARIN SODIUM 5 MG TABLET PO SCH (16:15)
--- NOTE | 2019-09-30 18:40 | NUR ---
MS RN NOTES PATIENT IN BED RESTING NO SOB OR ACUTE DISTRESS NOTED. PATIENT IN BED WITH DAUGHTER AT BEDSIDE. NO ACUTE CHANGES NOTED DURING SHIFT. ALL DUE MEDICATIONS ADMINISTERED. ALL NEEDS MET. PATIENT TOLERATED PHYSICAL THERAPY WELL TODAY. WILL ENDORSE CARE TO PM SHIFT.
--- NOTE | 2019-09-30 19:15 | NUR ---
MS RN OPENING NOTES Received patient awake on Cerda's position on bed. Patient denies any discomfort/complaints at this time. Discuss with patient the POC for the shift, patient verbalized understanding. No IV line present, MD aware. Kept on bed clean, dry and comfortable. Call light within easy reach. Will continue to monitor accordingly.
[2019-09-30 20:00] VITALS: BP 125/56
--- NOTE | 2019-10-01 04:02 | NUR ---
MS RN NOTES Patient refused turning and repositioning despite education provided. Patient verbalized understanding but insisted not to be turned and repositioned. Will continue to monitor accordingly.
--- NOTE | 2019-10-01 06:35 | NUR ---
MS RN CLOSING NOTES Patient asleep on bed, on Cerda's position. On RA, no SOB/respiratory distress noted, no complaints made at this time. Patient is A/O x3, no confusion noted within the shift. All nursing needs attended, able to clean and changed patient's diaper, no BM noted. Kept on bed clean, dry and comfortable. Call light within easy reach. Endorsed to the next shift.
--- NOTE | 2019-10-01 07:18 | NUR ---
RN OPENING NOTE PT WAS RECEIVED IN BED AT LOWEST AND LOCKED POSITION WITH SIDE RAILS UPX2, A/O X4 BREATHING EVEN AND UNLABORED ON RA, NO S/S OF ANY DISTRESS OR PAIN NOTED AT THIS TIME, NO IV IN PLACE WITH MD AWARE, AWAITING PLACEMENT, SAFETY PRECAUTIONS IN PLACE, CALL LIGHT IN REACH, WILL MONITOR ACCORDINGLY.
[2019-10-01] MEDS: LEVALBUTEROL HCL NEB 1.25 MG/0.5 ML VIAL.NEB IH SCH ×4 (07:35→22:35)
[2019-10-01 08:00] VITALS: BP 143/75
[2019-10-01] MEDS: PANTOPRAZOLE 40 MG TABLET.DR PO SCH (08:06)
[2019-10-01] MEDS: MINERAL OIL/PETROLATUM,WHITE 120 GM JAR TP SCH (08:06)
[2019-10-01] MEDS: CEPHALEXIN MONOHYDRATE 500 MG CAPSULE PO SCH ×2 (08:06→16:44)
[2019-10-01] MEDS: DOCUSATE SODIUM 100 MG CAPSULE PO SCH ×2 (08:06→16:44)
[2019-10-01] MEDS: VALSARTAN 80 MG TABLET PO SCH (08:11)
[2019-10-01] MEDS ORDERED: GLIPIZIDE XL 5 MG TAB.OSM.24 PO SCH (09:00)
[2019-10-01] MEDS: ACETAMINOPHEN 325 MG TABLET PO SCH (11:14)
[2019-10-01] MEDS ORDERED: DEXTROSE 50%-WATER 50 ML DISP.SYRIN IV PRN (11:30)
[2019-10-01] MEDS: INSULIN REGULAR, HUMAN 100 UNIT/ML 3 ML VIAL SQ PRN ×3 (11:49→21:13)
[2019-10-01] MEDS: BLOOD SUGAR DIAGNOSTIC 1 EACH STRIP IN SCH ×3 (11:50→21:13)
[2019-10-01 16:00] VITALS: BP 125/60
[2019-10-01] MEDS: WARFARIN SODIUM 5 MG TABLET PO SCH (16:45)
--- NOTE | 2019-10-01 18:24 | NUR ---
RN CLOSING NOTE PT IN BED AT LOWEST AND LOCKED POSITION WITH SIDE RAILS UPX2, A/O X4 BREATHING EVEN AND UNLABORED WITH NO DISTRESS OR PAIN AT THIS TIME, NO IV IN PLACE WITH MD AWARE, AWAITING PLACEMENT, SAFETY PRECAUTIONS IN PLACE, CALL LIGHT IN REACH, ALL NEEDS ATTENDED TO, WILL ENDORSE TO NIGHT RN FOR PAULETTE.
--- NOTE | 2019-10-01 19:18 | NUR ---
MS RN OPENING NOTES: RECEIVED PT ON ROOM AIR AND IS TOLERATING WELL. PT IS SITTING UP IN BED AT THIS TIME WATCHING TELEVISION. PT IS A/OX3. NO SOB NOTED. NO S/S OF DISTRESS. PT HAS NO IV AT THIS TIME. MD IS AWARE. PT NOTED WITH BILATERAL LOWER EXTREMITIES SWELLING. BED KEPT IN LOW, LOCKED POSITION, AND SIDE RAILS X 2UP. CALL LIGHT WITHIN REACH. WILL CONTINUE TO MONITOR PT.
[2019-10-01] MEDS: ACETAMINOPHEN 325 MG TABLET PO PRN (19:25)
--- NOTE | 2019-10-01 19:27 | NUR ---
MS RN NOTES: PT COMPLAINING OF 8/10 BILATERAL LEG PAIN. PT WAS ADMINISTERED TYLENOL 650MG PO. WILL CONTINUE TO MONITOR.
[2019-10-01 20:00] VITALS: BP 116/62
--- NOTE | 2019-10-01 21:14 | NUR ---
MS RN NOTES: BLOOD SUGAR THIS PM WAS 144. 2 UNITS OF INSULIN WAS ADMINISTERED. WILL CONTINUE TO MONITOR. ALSO, PT AWARE THAT SHE WILL START GLIPIZIDE IN AM.
[2019-10-02] MEDS: INSULIN REGULAR, HUMAN 100 UNIT/ML 3 ML VIAL SQ PRN ×4 (06:31→21:56)
[2019-10-02] MEDS: LEVALBUTEROL HCL NEB 1.25 MG/0.5 ML VIAL.NEB IH SCH ×2 (07:14→15:31)
[2019-10-02] MEDS: BLOOD SUGAR DIAGNOSTIC 1 EACH STRIP IN SCH ×4 (07:14→21:55)
--- NOTE | 2019-10-02 07:32 | NUR ---
MS RN CLOSING NOTES: ALL NEEDS WERE ATTENDED AND ANTICIPATED FOR. PT SLEEPING AND EASILY AROUSABLE. NO SOB NOTED. NO S/S OF DISTRESS. 2 UNITS ADMINISTERED THIS AM AND PUDDING WAS GIVEN. PT HAS NO IV NOTED AT THIS TIME. PT REFUSED TO BE TURNED Q 2HRS THROUGHOUT THE SHIFT. BED KEPT IN LOW, LOCKED POSITION, AND SIDE RAILS X 2UP. BED ALARM ACTIVATED. ENDORSE TO AM NURSE FOR PAULETTE.
[2019-10-02 08:00] VITALS: BP 139/84
[2019-10-02] MEDS: glipiZIDE XL 2.5 MG TAB.OSM.24 PO SCH (08:40)
[2019-10-02] MEDS: VALSARTAN 80 MG TABLET PO SCH (08:41)
[2019-10-02] MEDS: DOCUSATE SODIUM 100 MG CAPSULE PO SCH ×2 (08:41→16:37)
[2019-10-02] MEDS: CEPHALEXIN MONOHYDRATE 500 MG CAPSULE PO SCH (08:41)
[2019-10-02] MEDS: PANTOPRAZOLE 40 MG TABLET.DR PO SCH (08:41)
[2019-10-02] MEDS: ACETAMINOPHEN 325 MG TABLET PO SCH (08:43)
[2019-10-02] MEDS: MINERAL OIL/PETROLATUM,WHITE 120 GM JAR TP SCH (08:46)
[2019-10-02] MEDS: ACETAMINOPHEN 325 MG TABLET PO PRN (12:30)
[2019-10-02 16:00] VITALS: BP 113/78
[2019-10-02] MEDS: WARFARIN SODIUM 5 MG TABLET PO SCH (16:38)
--- NOTE | 2019-10-02 19:25 | NUR ---
MS RN OPENING NOTES RECEIVED PATIENT IN BED ALERT AND ORIENTED X 3 FAMILY ON BEDSIDE. VERBALLY RESPONSIVE AND ABLE TO FOLLOW DIRECTIONS. BREATHING REGULAR AND UNLABORED ON ROOM AIR. NO IV ACCESS. BODY ASSESSMENT DONE, OBSERVED WITH BLE EDEMA AND SKIN DISCOLORATION. NO COMPLAINTS OF PAIN/DISCOMFORT REPORTED OF THE TIME. BED LOW AND LOCKED ON SEMI FOWLERS POSITION. CALL LIGHT IN REACH. WILL CONTINUE TO MONITOR.
[2019-10-02 20:00] VITALS: BP 122/61
[2019-10-02 20:02] VITALS: BP 122/61
--- NOTE | 2019-10-02 20:15 | NUR ---
MS RN NOTES DAUGHTER REQUESTING TO GIVE DIURETIC TO THE PATIENT FOR BLE SWELLING. EXPLAINED TO HER THAT THOUGH THE BUN/CREATININE DECREASED, IS STILL WAITING FOR THE NEPHROLOGY INPUT. JIMENEZ EVANS MADE AWARE AND AGREED TO WAIT FOR THE SPRING ENCASER DECISION IN THE MORNING. DAUGHTER NOTIFIED ON BEDSIDE.
--- NOTE | 2019-10-02 22:00 | NUR ---
MS RN NOTES BS 180mG/dl; 3UNITS REGULAR INSULIN GIVEN SQ. SNACKS PROVIDED ON BEDSIDE. WILL CONTINUE TO MONITOR.
[2019-10-03] MEDS: LEVALBUTEROL HCL NEB 1.25 MG/0.5 ML VIAL.NEB IH SCH ×4 (01:19→22:39)
[2019-10-03] MEDS: ACETAMINOPHEN 325 MG TABLET PO PRN ×2 (06:07→20:45)
[2019-10-03] MEDS: BLOOD SUGAR DIAGNOSTIC 1 EACH STRIP IN SCH ×4 (06:35→23:18)
[2019-10-03] MEDS: INSULIN REGULAR, HUMAN 100 UNIT/ML 3 ML VIAL SQ PRN ×4 (06:35→23:26)
--- NOTE | 2019-10-03 06:40 | NUR ---
MS RN NOTES BS 155mG/dl; 2UNITS REGULAR INSULIN GIVEN SQ. SNACKS PROVIDED ON BEDSIDE. WILL CONTINUE TO MONITOR.
--- NOTE | 2019-10-03 06:50 | NUR ---
MS RN CLOSING NOTES PATIENT IN BED ALERT AND ORIENTED X 3. VERBALLY RESPONSIVE AND ABLE TO FOLLOW DIRECTIONS. BREATHING REGULAR AND UNLABORED ON ROOM AIR. NO IV ACCESS. COMPLAINED OF 3/10 HEADACHE, TYLENOL 650MG GIVEN BY MOUTH. NON-PHARMACOLOGICAL INTERVENTIONS PROVIDED. BED LOW AND LOCKED ON SEMI FOWLERS POSITION. CALL LIGHT IN REACH. WILL ENDORSE TO MORNING SHIFT FOR PAULETTE.
--- NOTE | 2019-10-03 07:46 | NUR ---
MS RN NOTES PATIENT IN BED RESTING NO SOB OR ACUTE DISTRESS NOTED. PATIENT ALERT, ORIENTED X4. PATIENT WITH NO PERIPHERAL IV. AWAITING FOR PLACEMENT. BED IN LOW LOCKED POSITION. CALL LIGHT WITHIN REACH. WILL CONTINUE TO MONITOR.
[2019-10-03 08:00] VITALS: BP 131/98
[2019-10-03] MEDS: VALSARTAN 80 MG TABLET PO SCH (08:03)
[2019-10-03] MEDS: DOCUSATE SODIUM 100 MG CAPSULE PO SCH ×2 (08:03→16:26)
[2019-10-03] MEDS: PANTOPRAZOLE 40 MG TABLET.DR PO SCH (08:03)
[2019-10-03] MEDS: glipiZIDE XL 2.5 MG TAB.OSM.24 PO SCH (08:05)
[2019-10-03] MEDS: MINERAL OIL/PETROLATUM,WHITE 120 GM JAR TP SCH (09:00)
[2019-10-03] MEDS: HYDROCHLOROTHIAZIDE 25 MG TABLET PO SCH (09:48)
[2019-10-03] MEDS: ACETAMINOPHEN 325 MG TABLET PO SCH (11:09)
[2019-10-03 16:00] VITALS: BP 131/98
[2019-10-03] MEDS: WARFARIN SODIUM 5 MG TABLET PO SCH (16:28)
--- NOTE | 2019-10-03 18:43 | NUR ---
MS RN NOTES PATIENT IN BED RESTING NO SOB OR ACUTE DISTRESS NOTED. NO ACUTE CHANGES NOTED DURING SHIFT. ALL DUE MEDICATIONS ADMINISTERED. ALL NEEDS MET. WILL ENDORSE CARE TO PM SHIFT.
--- NOTE | 2019-10-03 19:35 | NUR ---
RN OPENING NOTES RECEIVED REPORT FROM DAYSHIFT NABILA ARTEAGA. FOUND Pt AWAKE, RESTING IN BED. NO S/S OF ACUTE DISTRESS OR SOB NOTED. Pt IS A/OX3, VERBAL, ABLE TO MAKE NEEDS KNOWN. Pt IS STILL REFUSING IV ACCESS. PER REPORT MD IS AWARE. POSSIBLE D/C TOMORROW TO ARU. SAFETY MEASURES IN PLACE. BED LOW, LOCKED, HOB ELEVATED, SIDE RAILS UP, CALL LIGHT AND BEDSIDE TABLE WITHIN REACH. WILL CONTINUE TO MONITOR Pt's CONDITION AND SAFETY THROUGHOUT THE NIGHT.
[2019-10-03 20:00] VITALS: BP 121/61
[2019-10-03 20:33] VITALS: BP 121/61
--- NOTE | 2019-10-03 22:05 | NUR ---
RN NOTES HS ACCUCHECK BG 168. ADMINISTERED 3UN OF INSULIN PER SLIDING SCALE.
--- NOTE | 2019-10-04 06:45 | NUR ---
RN NOTES AC ACCUCHECK BG 134. ADMINISTERED 2UN OF INSULIN PER SLIDING SCALE.
[2019-10-04] MEDS: BLOOD SUGAR DIAGNOSTIC 1 EACH STRIP IN SCH ×4 (06:58→21:52)
[2019-10-04] MEDS: PANTOPRAZOLE 40 MG TABLET.DR PO SCH (07:00)
[2019-10-04] MEDS: INSULIN REGULAR, HUMAN 100 UNIT/ML 3 ML VIAL SQ PRN ×4 (07:07→22:13)
[2019-10-04 07:29] LABS: BASOPHILS # (AUTO) 0.1 /CMM (0.0-0.2); BASOPHILS % (AUTO) 1.2 % (0.0-2.0); EOSINOPHILS % (AUTO) 4.4 % (0.0-6.0); HEMATOCRIT 42 % (33-45); HEMOGLOBIN 13.4 g/dL (11.5-14.8); LYMPHOCYTES # (AUTO) 1.2 /CMM (0.8-4.8); MEAN CORPUSCULAR HGB CONC 32 g/dl (31.0-36.0); MEAN CORPUSCULAR VOLUME 91 fL (82-100); MONOCYTES # (AUTO) 0.5 /CMM (0.1-1.30); MONOCYTES % (AUTO) 7.5 % (2.0-12.0); NEUTROPHILS # (AUTO) 4.7 /CMM (1.8-8.9); NEUTROPHILS % (AUTO) 68.9 % (43.0-81.0); PLATELET COUNT (AUTO) 380 /CMM (150-450); RED BLOOD CELL COUNT(AUTO) 4.62 MIL/uL (4.0-5.2); WHITE BLOOD COUNT (AUTO) 6.8 K/uL (4.3-11.0)
--- NOTE | 2019-10-04 07:30 | NUR ---
RN CLOSING NOTES NO SIGNIFICANT CHANGES IN Pt's CONDITION. NO S/S OF ACUTE DISTRESS OR SOB NOTED DURING THE NIGHT. ALL NEEDS MET AND ATTENDED TO. SAFETY MEASURES IN PLACE. Pt IS RESTING IN BED, WITH UNLABORED RESPIRATIONS & EQUAL CHEST RISE AND FALL. ENDORSED TO DAYSHIFT RN FOR Pt's PAULETTE.
[2019-10-04 07:47] LABS: MAGNESIUM 1.8 mg/dL (1.8-2.4)
[2019-10-04] MEDS: LEVALBUTEROL HCL NEB 1.25 MG/0.5 ML VIAL.NEB IH SCH ×3 (07:50→23:24)
[2019-10-04 08:00] VITALS: BP 147/71
[2019-10-04] MEDS: HYDROCHLOROTHIAZIDE 25 MG TABLET PO SCH (08:28)
[2019-10-04] MEDS: DOCUSATE SODIUM 100 MG CAPSULE PO SCH ×2 (08:28→17:00)
[2019-10-04] MEDS: VALSARTAN 80 MG TABLET PO SCH (08:28)
[2019-10-04] MEDS: glipiZIDE XL 2.5 MG TAB.OSM.24 PO SCH (08:30)
[2019-10-04] MEDS: MINERAL OIL/PETROLATUM,WHITE 120 GM JAR TP SCH (08:35)
[2019-10-04] MEDS: ACETAMINOPHEN 325 MG TABLET PO PRN ×2 (09:14→17:37)
--- NOTE | 2019-10-04 09:38 | NUR ---
MS RN NOTES PATIENT IN BED RESTING NO SOB OR ACUTE DISTRESS NOTED. PATIENT ALERT, ORIENTED X3. RESTING. PATIENT WITH NO IV ACCESS. AWAITING FOR REHAB PLACEMENT. BED IN LOW LOCKED POSITION. CALL LIGHT WITHIN REACH. WILL CONTINUE TO MONITOR.
[2019-10-04] MEDS: ACETAMINOPHEN 325 MG TABLET PO SCH (12:00)
[2019-10-04 16:00] VITALS: BP 137/76
[2019-10-04] MEDS: WARFARIN SODIUM 5 MG TABLET PO SCH (17:32)
--- NOTE | 2019-10-04 18:51 | NUR ---
MS RN NOTES PATIENT IN BED RESTING NO SOB OR ACUTE DISTRESS NOTED. PATIENT ALERT, ORIENTED X3. NO ACUTE CHANGES NOTED DURING SHIFT. PATIENT ABLE TO AMBULATE WITH PT WITH WALKER. ALL DUE MEDICATIONS ADMINISTERED. ALL NEEDS MET. WILL ENDORSE TO PM SHIFT PAULETTE.
--- NOTE | 2019-10-04 19:40 | NUR ---
RN OPENING NOTES RECEIVED REPORT FROM DAYSHIFT NABILA ARTEAGA. FOUND Pt AWAKE, RESTING IN BED, WATCHING TV. NO S/S OF ACUTE DISTRESS OR SOB NOTED. Pt IS A/OX3, VERBAL, ABLE TO MAKE NEEDS KNOWN. Pt IS STILL REFUSING IV ACCESS. PER REPORT MD IS AWARE. SAFETY MEASURES IN PLACE. BED LOW, LOCKED, HOB ELEVATED, SIDE RAILS UP, CALL LIGHT AND BEDSIDE TABLE WITHIN REACH. WILL CONTINUE TO MONITOR Pt's CONDITION AND SAFETY THROUGHOUT THE NIGHT.
[2019-10-04 20:00] VITALS: BP_SYST 105; BP_SYST 160; BP_DIAS 63; BP_DIAS 75
--- NOTE | 2019-10-04 22:16 | NUR ---
RN NOTES: HS ACCUCHECK BG 166. ADMINISTERED 3UN OF INSULIN VIA LT DELTOID PER SLIDING SCALE.
[2019-10-05] MEDS: BLOOD SUGAR DIAGNOSTIC 1 EACH STRIP IN SCH ×2 (06:33→13:05)
[2019-10-05] MEDS: INSULIN REGULAR, HUMAN 100 UNIT/ML 3 ML VIAL SQ PRN ×2 (06:41→13:08)
--- NOTE | 2019-10-05 06:43 | NUR ---
RN NOTES AC ACCUCHECK BG 133. ADMINISTERED 2UN OF INSULIN PER SLIDING SCALE VIA RT DELTOID.
--- NOTE | 2019-10-05 07:10 | NUR ---
RN OPENING NOTES RECEIVED PATIENT IN BED RESTING. A/OX3, ABLE TO MAKE NEEDS KNOWN. NOT IN ANY FORM OF DISTRESS. NO SOB. DENIED PAIN OR DISCOMFORT AT THIS TIME. NO IV ACCESS. KEPT PATIENT SAFE AND COMFORTABLE. BED IN LOW/LOCKED POSITION, SIDERAILS UPX2, CALL LIGHT IN REACH. WILL CONT TO MONITOR ACCORDINGLY.
[2019-10-05] MEDS: LEVALBUTEROL HCL NEB 1.25 MG/0.5 ML VIAL.NEB IH SCH ×2 (07:35→15:33)
[2019-10-05 08:00] VITALS: BP 133/78
[2019-10-05] MEDS: VALSARTAN 80 MG TABLET PO SCH (08:41)
[2019-10-05] MEDS: glipiZIDE XL 2.5 MG TAB.OSM.24 PO SCH (08:41)
[2019-10-05] MEDS: HYDROCHLOROTHIAZIDE 25 MG TABLET PO SCH (08:41)
[2019-10-05] MEDS: PANTOPRAZOLE 40 MG TABLET.DR PO SCH (08:44)
[2019-10-05] MEDS: MINERAL OIL/PETROLATUM,WHITE 120 GM JAR TP SCH (08:51)
[2019-10-05] MEDS: ACETAMINOPHEN 325 MG TABLET PO PRN ×2 (08:54→17:28)
--- NOTE | 2019-10-05 08:54 | NUR ---
Patient asked for tylenol to be given now instead of 1200. Tylenol 650mg PO given as ordered.
[2019-10-05] MEDS: DOCUSATE SODIUM 100 MG CAPSULE PO SCH (08:55)
--- NOTE | 2019-10-05 10:00 | NUR ---
rn notes: PT Ambulated with PT, walking in the hallway. patient tolerated well.
[2019-10-05] MEDS ORDERED: GLIP2.5T PO (11:29)
[2019-10-05] MEDS ORDERED: VALS80TA2 PO (11:29)
[2019-10-05] MEDS: ACETAMINOPHEN 325 MG TABLET PO SCH (12:00)
[2019-10-05 16:00] VITALS: BP 124/68
--- NOTE | 2019-10-05 17:30 | NUR ---
rn notes Called dr morales to verify continued home meds because daughter said lasix was ordered by PCP for only 5 days and only took one dose prior coming to [facility]. Per RANDA WIN lasix. Daughter informed, and verbalized understanding.
--- NOTE | 2019-10-05 18:00 | NUR ---
discharged patient in stable condition, transported by ambulace crew. discharged instructions given, to follow up with pcp, cont claude meds, and return to ER for worsening of symptoms, daughter verbalized understanding. educational resources given as well. no iv access noted. removed name band. all belongings returned, noted 2 yellow rings present on patient's ring finger. forms signed. photos taken. dc papers handed to daughter.
== END 2019-10-05 18:00 | disposition home health service (06) | DRG 871 ==
LOC: ER 21:38 → TELE 09-23 01:58 → MED 09-24 09:01
PROVIDERS: ADMIT Internal Medicine; ATTEND Internal Medicine
PROC: 05H533Z Insertion of Infusion Device into Right Subclavian Vein, Percutaneous Approach (ICD-10-PCS; principal; 2019-09-26)
PROC: B546ZZA Ultrasonography of Right Subclavian Vein, Guidance (ICD-10-PCS; principal; 2019-09-26)
DX: A41.51 Sepsis due to Escherichia coli [E. coli] (principal); N17.0 Acute kidney failure with tubular necrosis; I50.33 Acute on chronic diastolic (congestive) heart failure; I21.A1 Myocardial infarction type 2; J96.01 Acute respiratory failure with hypoxia; E43 Unspecified severe protein-calorie malnutrition; G93.41 Metabolic encephalopathy; N39.0 Urinary tract infection, site not specified; E87.1 Hypo-osmolality and hyponatremia; E66.2 Morbid (severe) obesity with alveolar hypoventilation; D68.59 Other primary thrombophilia; Z68.42 Body mass index [BMI] 45.0-49.9, adult; I13.0 Hypertensive heart and chronic kidney disease with heart failure and stage 1 through stage 4 chronic kidney disease, or unspecified chronic kidney disease; I48.91 Unspecified atrial fibrillation; E86.0 Dehydration; E86.1 Hypovolemia; I27.20 Pulmonary hypertension, unspecified; B96.20 Unspecified Escherichia coli [E. coli] as the cause of diseases classified elsewhere; E88.09 Other disorders of plasma-protein metabolism, not elsewhere classified; N18.9 Chronic kidney disease, unspecified; E83.42 Hypomagnesemia; R26.9 Unspecified abnormalities of gait and mobility; E11.22 Type 2 diabetes mellitus with diabetic chronic kidney disease; S81.819A Laceration without foreign body, unspecified lower leg, initial encounter; X58.XXXA Exposure to other specified factors, initial encounter; Y93.9 Activity, unspecified; Y92.009 Unspecified place in unspecified non-institutional (private) residence as the place of occurrence of the external cause; I89.0 Lymphedema, not elsewhere classified
CPT/HCPCS: 36410; 36415; 36600; 70450-TC; 71045-TC; 80048-TC; 80053-TC; 80061-TC; 80076-TC; 81000-TC; 82803-TC; 82962-TC; 83605-TC; 83735-TC; 83880; 84100-TC; 84443-TC; 84484-TC; 85025-TC; 85610-TC; 85730-TC; 87040-TC; 87081-TC; 87086-TC; 87186-TC; 93307-TC; 94799-TC; 97110-TC; 97112-TC; 97116-TC; 97530-TC; G0378; J0360; J0696; J1815; J3475; J3490; J7050; J7060

== ENCOUNTER 2019-10-06 18:47 | Emergency (ER) | payer BC ==
[~2019-10-06] VITALS: Ht 167.6 cm; Wt 113.4 kg
[~2019-10-06 18:47] MED LIST: FURO40TA5 PO; GLIP2.5T PO; HYDR25TA4 PO; SPIR25TA6 PO; VALS80TA2 PO; WARF4TAB72 PO
--- NOTE | 2019-10-06 19:04 | NUR ---
BIB RA C/O WEAKNESS FROM HOME. PT PRESENTS WITH SWELLING OF BLE. PER DAUGHTER, PT DC FROM HOSPITAL YESTERDAY. DENIES SOB, DIZZINESS, N/V. REPORTS SOME PAIN IN LEGS. PT IS AOX4, HYPERTENSIVE, RR EVEN AND UNLABORED ON RA. AMBULATORY WITH WALKER. SKIN WARM, DRY, AND INTACT. DAUGHTER AT BEDSIDE. ON MONITOR AND READY FOR EVAL.
[2019-10-06] MEDS ORDERED: IV NS 0.9% 500 ML BAG IV ONE (19:30)
[2019-10-06 19:38] LABS: BASOPHILS # (AUTO) 0.2 /CMM (0.0-0.2); BASOPHILS % (AUTO) 1.7 % (0.0-2.0); HEMATOCRIT 45 % (33-45); HEMOGLOBIN 14.6 g/dL (11.5-14.8); LYMPHOCYTES # (AUTO) 0.9 /CMM (0.8-4.8); LYMPHOCYTES % (AUTO) 8.1 % (20.0-44.0); MEAN CORPUSCULAR HGB CONC 32 g/dl (31.0-36.0); MEAN CORPUSCULAR VOLUME 90 fL (82-100); MONOCYTES # (AUTO) 0.5 /CMM (0.1-1.30); MONOCYTES % (AUTO) 4.1 % (2.0-12.0); NEUTROPHILS # (AUTO) 9.4 /CMM (1.8-8.9); NEUTROPHILS % (AUTO) 84.1 % (43.0-81.0); PLATELET COUNT (AUTO) 428 /CMM (150-450); RED BLOOD CELL COUNT(AUTO) 5.02 MIL/uL (4.0-5.2); WHITE BLOOD COUNT (AUTO) 11.1 K/uL (4.3-11.0)
[2019-10-06 19:55] LABS: ALANINE AMINOTRANSFERASE 15 U/L (12-78); ALBUMIN 3.2 g/dL (3.4-5.0); ALKALINE PHOSPHATASE 81 U/L (46-116); ASPARTATE AMINOTRANSFERASE 19 U/L (15-37); BILIRUBIN,DIRECT 0.1 mg/dL (0.0-0.2); BILIRUBIN,TOTAL 0.4 mg/dL (0.2-1.0); CALCIUM, SERUM 10.4 mg/dL (8.5-10.1); CARBON DIOXIDE 28 mmol/L (21-32); CHLORIDE 98 mmol/L (98-107); CREATININE 1.5 mg/dL (0.6-1.3); GLUCOSE 148 mg/dL (74-106); LIPASE 164 U/L (73-393); POTASSIUM 4.7 mmol/L (3.5-5.1); SODIUM SERUM 136 mmol/L (136-145); UREA NITROGEN, BLOOD 52 mg/dL (7-18)
--- NOTE | 2019-10-06 20:20 | NUR ---
URINE OBTAIN VIA STRAIGHT CATH PER PROTOCOL PER ORDER
[2019-10-06 20:32] LABS: APPEARANCE,URINE Slightly Cloudy (CLEAR); BILIRUBIN,URINE Negative (NEGATIVE); BLOOD, URINE Trace-intact Ery/uL (NEGATIVE); COLOR,URINE Yellow (YELLOW); KETONES,URINE Trace (NEGATIVE); LEUKOCYTE ESTERASE ,URINE Negative (NEGATIVE); NITRITE, URINE Negative (NEGATIVE); PROTEIN,URINE Negative (NEGATIVE); UGLUCOSE Negative (NEGATIVE); UROBILINOGEN,URINE 0.2 EU/dL (0.2)
[2019-10-06 20:42] LABS: BACTERIA,URINE Few /HPF (None Seen); SQUAMOUS EPITHELIAL CELL,UR Few /HPF (None Seen); WBC,URINE NONE SEEN /HPF (0-3)
--- NOTE | 2019-10-06 21:00 | NUR ---
PT MEDICALLY CLEARED FOR DISCHARGE, DAUGHTER INSISTING PT SHOULD BE ADMITTED.
--- NOTE | 2019-10-06 22:41 | NUR ---
pt's daughter Orly cell states she will come back around 8 am to speak to lining caser
[2019-10-06] MEDS ORDERED: ACETAMINOPHEN ES 500 MG TABLET ONE (22:50)
[2019-10-06] MEDS ORDERED: ACETAMINOPHEN ES 500 MG TABLET PO ONE (23:00)
--- NOTE | 2019-10-07 | NUR ---
REPORT RECEIVED FROM NABILA ARGUETA
--- NOTE | 2019-10-07 01:00 | NUR ---
PER PT, DAUGHTER WILL SPEAK W/ [employer] THE NEXT DAY
--- NOTE | 2019-10-07 02:08 | NUR ---
Patient is resting comfortably in bed with eyes closed. Easily aroused.
[2019-10-07] MEDS ORDERED: ACETAMINOPHEN 325 MG TABLET ONE (05:39)
[2019-10-07] MEDS ORDERED: ACETAMINOPHEN 325 MG TABLET PO ONE (06:00)
--- NOTE | 2019-10-07 06:16 | NUR ---
PT WAS CLEANED. LINEN WAS CHANGED
--- NOTE | 2019-10-07 07:16 | NUR ---
PT IS ASLEEP ON BED EASILY AROUSABLE, PT IS AAOX3, NOT IN RESPIRATORY DISTRESS, V/S STABLE, KEPT RESTED AND COMFORTABLE, WILL CONTINUE TO MONITOR.
--- NOTE | 2019-10-07 09:40 | NUR ---
CASE MANGER AT BEDSIDE FOR EVAL.
--- NOTE | 2019-10-07 13:49 | NUR ---
LINEN CHANGE AND CLEANED
[2019-10-07] MEDS ORDERED: VALS80TA31 PO (14:58)
[2019-10-07] MEDS ORDERED: GLIP2.5T3 PO (14:58)
--- NOTE | 2019-10-07 15:00 | NUR ---
Note miguelpriya in EDM - 10/07/19 at 1501 by LUKE IV removed. Catheter intact and site benign. Pressure and 4x4 applied to site. No bleeding noted.Patient discharged to home in stable condition. Written and verbal after care instructions given. Patient verbalizes understanding of instruction.
--- NOTE | 2019-10-07 15:11 | NUR ---
LUNCH TRAY GIVEN AT BEDSIDE
[2019-10-07] MEDS ORDERED: ACETAMINOPHEN ES 500 MG TABLET ONE (16:19)
[2019-10-07] MEDS ORDERED: ACETAMINOPHEN ES 500 MG TABLET PO ONE (16:30)
--- NOTE | 2019-10-07 16:33 | NUR ---
LINEN CHANGED AND CLEANED PT
--- NOTE | 2019-10-07 16:50 | NUR ---
JAYSHREE FROM [facility] CALLED AND STATED NEW ETA FOR PICK TIME FOR PT 45MINS
[2019-10-07 17:59] VITALS: BP 118/66
--- NOTE | 2019-10-07 17:59 | NUR ---
Patient discharged to home in stable condition. Written and verbal after care instructions given. Patient verbalizes understanding of instruction.
--- NOTE | 2019-10-07 17:59 | NUR ---
PT WAS BEING TRANSFFERED TO SNF
--- NOTE | 2019-10-07 18:10 | NUR ---
report given to vinayak from [facility]
== END 2019-10-07 18:00 ==
LOC: ER 18:48
DX: R53.1 Weakness (principal); I87.2 Venous insufficiency (chronic) (peripheral); E86.0 Dehydration; E11.9 Type 2 diabetes mellitus without complications; I48.91 Unspecified atrial fibrillation; I11.0 Hypertensive heart disease with heart failure; I50.9 Heart failure, unspecified; Z88.8 Allergy status to other drugs, medicaments and biological substances; Z79.899 Other long term (current) drug therapy; Z79.01 Long term (current) use of anticoagulants
CPT/HCPCS: 36415; 80048; 80076; 81001; 83690; 84484; 85025; 93005; 99285; J7040 ×2; 81000-TC